=== PATIENT | female | born 1990 | race Caucasian/White ===

== ENCOUNTER 2017-10-11 11:10 | Emergency (ER) | payer MEDICAID, OTHER ==
[~2017-10-11] VITALS: Ht 160 cm; Wt 82.0 kg
[~2017-10-11 11:10] MED LIST: ASPI-986; BENA20TA77; CLOP75TA16; GABA300C; INSU100I4; ISOS30TA12; LOP25; MEGE40TA2; PRAV40TA58
[2017-10-11] MEDS ORDERED: SODIUM CHLORIDE 0.9% 1,000 ML IV ONE (11:33)
[2017-10-11] MEDS ORDERED: LEVETIRACETAM 500MG PREMIX 100 ML IV ONE (11:45)
[2017-10-11 11:59] LABS: BASOPHILS % 0.4 % (0.0-2.0); EOSINOPHILS % 1.5 % (0.0-5.0); HEMATOCRIT. 45.5 % (36.0-48.0); HEMOGLOBIN. 15.2 g/dL (12.0-16.0); LYMPHOCYTES % 29.1 % (20.0-50.0); MEAN CORPUSCULAR HEMOGLOBIN 28.6 pg (28.0-32.0); MEAN CORPUSCULAR VOLUME 85.7 fL (81.0-99.0); MEAN PLATELET VOLUME 7.7 fl (7.4-10.4); MONOCYTES % 4.2 % (2.0-8.0); NEUTROPHILS % 64.8 % (40.0-76.0); PLATELET 462 x1000/uL (130-400); RED BLOOD CELL COUNT 5.31 mill/uL (4.2-5.4); RED CELL DISTRIBUTION WIDTH 13.4 % (11.6-14.6)
[2017-10-11 12:00] LABS: INR 1.1
[2017-10-11 12:05] LABS: AMMONIA 31 uMol/L (<32)
[2017-10-11 12:09] LABS: CARBON DIOXIDE 22 mEq/L (21-32); CHLORIDE 106 mEq/L (98-107); CREATINE KINASE 104 IU/L (26-192); ETHANOL BLOOD < 10 mg/dL; TROPONIN I < 0.02 ng/mL (0.00-0.04)
[2017-10-11 12:10] LABS: CARBAMAZEPINE < 0.5 ug/mL (4-12); VALPROIC ACID < 3.0 ug/mL (50-100)
[2017-10-11 12:18] LABS: PHENOBARBITAL < 2.1 ug/mL (15.0-40.0)
[2017-10-11 13:15] VITALS: BP 129/85
== END 2017-10-11 15:10 | disposition home or self-care (01) ==
LOC: ER 11:21
DX: G40.909 Epilepsy, unspecified, not intractable, without status epilepticus (principal); S00.532A Contusion of oral cavity, initial encounter; E86.0 Dehydration; R00.0 Tachycardia, unspecified; F17.210 Nicotine dependence, cigarettes, uncomplicated; F10.21 Alcohol dependence, in remission; X58.XXXA Exposure to other specified factors, initial encounter; Y93.89 Activity, other specified; Y92.018 Other place in single-family (private) house as the place of occurrence of the external cause
CPT/HCPCS: 36415; 80053; 80156; 80165; 80184; 80185; 82140; 82550; 83880; 84443; 84484; 85025; 85610; 93005; 96365; 99285; G0482; J1953; J7030; Z7610

== ENCOUNTER 2019-03-19 14:02 | Emergency (ER) | payer SELFPAY ==
[~2019-03-19] VITALS: Ht 160 cm; Wt 80.0 kg
[2019-03-19] MEDS ORDERED: SODIUM CHLORIDE 0.9% 1,000 ML IV ONE (14:10)
[2019-03-19] MEDS ORDERED: LEVETIRACETAM 1000MG/100ML 100 ML IV ONE (14:15)
[2019-03-19 14:39] LABS: BASOPHILS % 0.6 % (0.0-2.0); EOSINOPHILS % 0.7 % (0.0-5.0); HEMOGLOBIN. 15.2 g/dL (12.0-16.0); LYMPHOCYTES % 27.5 % (20.0-50.0); MEAN CORPUSCULAR HEMOGLOBIN 29.2 pg (28.0-32.0); MEAN CORPUSCULAR VOLUME 88.2 fL (81.0-99.0); MEAN PLATELET VOLUME 7.8 fl (7.4-10.4); MONOCYTES % 4.5 % (2.0-8.0); NEUTROPHILS % 66.7 % (40.0-76.0); PLATELET 433 x1000/uL (130-400); RED BLOOD CELL COUNT 5.21 mill/uL (4.2-5.4)
[2019-03-19 14:44] LABS: CHLORIDE 108 mEq/L (98-107)
[2019-03-19 15:01] LABS: ETHANOL BLOOD < 10 mg/dL
[2019-03-19 16:18] VITALS: BP 105/69
== END 2019-03-19 16:36 | disposition home or self-care (01) ==
LOC: ER 14:02
DX: G40.909 Epilepsy, unspecified, not intractable, without status epilepticus (principal); Z72.820 Sleep deprivation; R88.8 Abnormal findings in other body fluids and substances; F17.210 Nicotine dependence, cigarettes, uncomplicated; Z71.6 Tobacco abuse counseling
CPT/HCPCS: 36415; 80053; 80320; 82962; 85025; 96365; 99283; 99406; J1953; J7030; G0480

== ENCOUNTER 2019-09-27 13:32 | Emergency (ER) | payer SELFPAY ==
[~2019-09-27] VITALS: Ht 170.2 cm; Wt 82.0 kg
[2019-09-27] MEDS ORDERED: SODIUM CHLORIDE 0.9% 1,000 ML IV ONE (16:10)
[2019-09-27] MEDS ORDERED: LEVETIRACETAM 1000MG/100ML 100 ML IV ONE (16:15)
[2019-09-27 16:30] LABS: BASOPHILS % 0.6 % (0.0-2.0); EOSINOPHILS % 0.1 % (0.0-5.0); HEMATOCRIT. 42.9 % (36.0-48.0); HEMOGLOBIN. 14.5 g/dL (12.0-16.0); LYMPHOCYTES % 16.9 % (20.0-50.0); MEAN CORPUSCULAR HEMOGLOBIN 29.4 pg (28.0-32.0); MEAN CORPUSCULAR VOLUME 87.2 fL (81.0-99.0); MEAN PLATELET VOLUME 7.4 fl (7.4-10.4); MONOCYTES % 4.2 % (2.0-8.0); NEUTROPHILS % 78.2 % (40.0-76.0); PLATELET 511 x1000/uL (130-400); RED BLOOD CELL COUNT 4.92 mill/uL (4.2-5.4); RED CELL DISTRIBUTION WIDTH 13.7 % (11.6-14.6)
[2019-09-27 16:33] LABS: CHLORIDE 106 mEq/L (98-107)
[2019-09-27 16:37] LABS: ETHANOL BLOOD < 10 mg/dL
[2019-09-27 16:55] LABS: HCG SCREEN NEGATIVE
[2019-09-27 17:31] LABS: CLARITY URINE CLEAR (CLEAR); COLOR URINE ORANGE (YELLOW); KETONES URINE NEGATIVE (NEGATIVE); LEUKOCYTE ESTERASE URINE TRACE (NEGATIVE); NITRITE URINE POSITIVE (NEGATIVE); OCCULT BLOOD URINE 3+ (NEGATIVE); PROTEIN URINE 1+ (NEGATIVE)
[2019-09-27 17:51] LABS: *AMPHETAMINES SCREEN URINE NEGATIVE (NEGATIVE); *BARBITURATES SCREEN URINE NEGATIVE (NEGATIVE); *BENZODIAZEPINES SCREEN URINE NEGATIVE (NEGATIVE); *COCAINE SCREEN URINE NEGATIVE (NEGATIVE)
[2019-09-27 17:52] LABS: CANNABINOID URINE SCREEN NEGATIVE (NEGATIVE); METHADONE URINE SCREEN NEGATIVE (NEGATIVE); OPIATES URINE SCREEN NEGATIVE (NEGATIVE); PHENCYCLIDINE URINE SCREEN NEGATIVE (NEGATIVE)
[2019-09-27] MEDS ORDERED: CEFTRIAXONE 1 G PREMIX 50 ML IV ONE (18:15)
[2019-09-27 20:45] VITALS: BP 128/71
== END 2019-09-27 21:15 | disposition home or self-care (01) ==
LOC: ER 13:32
DX: R56.9 Unspecified convulsions (principal); N39.0 Urinary tract infection, site not specified
CPT/HCPCS: 36415; 80053; 80305; 80320; 81003; 84703; 85025; 87040; 87086; 96365; 96366; 96367; 99283; J0696; J1953; J7030; G0480